=== PATIENT | female | born 1960 | race Caucasian/White ===

== ENCOUNTER 2020-02-16 10:57 | Emergency (ER) | payer OTHER, SELFPAY ==
--- NOTE | ~2020-02-16 | XR_ITS ---
EXAMINATION: XR abdomen/kub 1V EXAM DATE: 02/16/2020 12:04 INDICATION: Periumbilical pain for 2 days. TECHNIQUE: Frontal projection of the upper abdomen, frontal projection lower abdomen/pelvis for inter pretation. There is no prior study for comparison. FINDINGS: There is expected amount of colonic stool and gas. No small bowel dilation, nonobstructiv e bowel gas pattern. Calcifications in the pelvis are believed to be phleboliths. There is no orga nomegaly suspected. L5-S1 fusion hardware. Lung bases unremarkable. IMPRESSION: Unremarkable abdomen x-ray exam. Reviewed, dictated and finalized at location B.
[2020-02-16 11:23] VITALS: BP 147/73; PULSE 76; RESP 20; TEMP 37; O2SAT 100
--- NOTE | 2020-02-16 11:48 | ED.ABDPAIN ---
HPI - Abdominal Pain General Chief Complaint: Abdominal Pain Stated Complaint: Abd pain Time Seen by Provider: 02/16/20 11:42 Source: patient and RN notes reviewed Mode of arrival: ambulatory Limitations: no limitations History of Present Illness HPI narrative: Patient presents today with a 2-day history of periumbilical abdominal pain, Occasional nausea. Reports that prior to this abdominal pain starting, her stomach was, upset all the time. She currently rates her pain 2/10 while lying supine, but this increases to 4/10 when she is upright. She describes the pain as throbbing. She is taking Rolaids without relief. Patient is concerned because she swallowed a metal soda can tab approximately 1 month ago and has been looking in her stool for it to pass, and has not found it.Stool was slightly loose this morning. Denies blood or mucus in the stool.History of appendectomy. History of GERD, but cannot take PPIs due to hives. MD elicited complaint: abdominal pain Related Data Home Medications Medication Instructions Recorded Confirmed hydrocodone-acetaminophen 1 tablet PO Q4H PRN 02/16/20 02/16/20 metoprolol succinate 50 mg PO DAILY 02/16/20 02/16/20 Allergies Allergy/AdvReac Type Severity Reaction Status Date / Time omeprazole [From Prilosec] Allergy Hives Verified 02/16/20 11:45 Review of Systems Review of Systems: Narrative: CONSTITUTIONAL: Denies body aches, fever, chills, or sweats. EYES: Denies visual changes, redness, or discharge. ENT: Denies rhinorrhea, congestion, sore throat, or otalgia. CARDIOVASCULAR: Denies chest pain, palpitations, or edema. RESPIRATORY: Denies cough or dyspnea. GASTROINTESTINAL: Denies vomiting, or diarrhea.+Abdominal pain, intermittent nausea GENITOURINARY: Denies dysuria or hematuria. SKIN: Denies rash, itching, or wounds. MUSCULOSKELETAL: Denies back pain, joint pain, or myalgia. NEUROLOGIC: Denies headache, numbness, tingling, or weakness. PSYCH: Denies depression or anxiety. [facility] Past Medical History Medical History (Updated 02/16/20 @ 12:20 by Erika Galarza, [employer], ) GERD (gastroesophageal reflux disease) Surgical History Surgical History (Updated 02/16/20 @ 11:51 by Erika Galarza, [facility], ) History of appendectomy Comments At time of signature, I have reviewed and agree with nursing past medical, surgical, social and family history unless otherwise noted. Please see nursing chart for further information. There is no relevant family history pertinent to the presenting complaint Exam Narrative: Exam Narrative: GENERAL: Well-appearing, well-nourished, and in no acute distress. HEAD: Normocephalic, atraumatic. EYES: EOMI. No redness or drainage. Conjunctivae normal. ENT: Mucous membranes pink and moist. NECK: Normal AROM. CHEST: No respiratory distress. Clear to auscultation. HEART: Regular rate and rhythm. No murmur appreciated. Normal peripheral pulses. ABDOMEN: Soft, nondistended, normal active bowel sounds. Tenderness to periumbilical area and right lower quadrant. MUSCULOSKELETAL: No bony tenderness. EXTREMITIES: Normal range of motion. No edema. SKIN: Warm, dry, no rash. Capillary refill normal. Normal skin turgor. NEURO: No focal deficits. Alert and oriented x3. Gait steady. PSYCH: Normal affect. No signs of depression or anxiety. Course Course Emergency Course: Patient declines ER transfer for further evaluation of her abdominal pain. She understands that she is leaving AGAINST MEDICAL ADVICE. She does not seem under the influence of drugs or alcohol and is able to make her own medical decisions. Vital Signs Vital signs: Vital Signs Temperature 98.6 F 02/16/20 11:23 Pulse Rate 76 02/16/20 11:23 Respiratory Rate 20 02/16/20 11:23 Blood Pressure 147/73 H 02/16/20 11:23 Pulse Oximetry 100 02/16/20 11:23 Temperature 98.6 F 02/16/20 11:23 Pulse Rate 76 02/16/20 11:23 Respiratory Rate 20 02/16/20 11:23 Blood
== END 2020-02-16 12:20 | disposition left against medical advice (07) ==
PROVIDERS: Emergency Provider Nurse Practitioner; PCP Family Medicine
DX: R10.33 Periumbilical pain (principal); K21.9 Gastro-esophageal reflux disease without esophagitis; I10 Essential (primary) hypertension
CPT/HCPCS: 74018; 99213; G0463